=== PATIENT | female | born 1960 | race Caucasian/White ===

== ENCOUNTER 2017-05-01 13:32 | Inpatient (IN) | payer OTHER ==
[~2017-05-01] VITALS: Ht 152.4 cm; Wt 55.3 kg
[2017-05-01] MEDS ORDERED: ALBUTEROL/IPRATROPIUM 2.5MG/0.5MG, 3 ML NPPB SCH (14:30)
[2017-05-01 14:42] LABS: BASOPHILS # (AUTO) 0.02 x10^3/uL (0-0.1); BASOPHILS % (AUTO) 0 % (0-1); EOSINOPHILS % (AUTO) 0 % (1-7); LYMPHOCYTES # (AUTO) 0.88 x10^3/uL (1-3.4); LYMPHOCYTES % (AUTO) 6 % (22-44); MD NO; MEAN CORPUSCULAR HEMOGLOBIN 31.8 pg (27.0-34.8); MEAN CORPUSCULAR HGB CONC 33.6 g/dL (32.4-35.8); MEAN CORPUSCULAR VOLUME 94.5 fL (80-100); MEAN PLATELET VOLUME 9.1 fL (7.4-10.4); MONOCYTES # (AUTO) 1.05 x10^3/uL (0.2-0.8); MONOCYTES % (AUTO) 7 % (2-9); NEUTROPHILS # (AUTO) 12.34 x10^3/uL (1.8-6.8); NEUTROPHILS % (AUTO) 86 % (42-75); PLATELET COUNT 172 x10^3/uL (130-400); RED BLOOD COUNT 5.12 x10^6/uL (3.82-5.3); RED CELL DISTRIBUTION WIDTH 14.5 % (9.6-15.2)
[2017-05-01 14:54] LABS: ANION GAP 13 mmol/L (5-15); CALCIUM 8.8 mg/dL (8.5-10.1); CHLORIDE 102 mmol/L (98-107)
[2017-05-01] MEDS ORDERED: ALBUTEROL/IPRATROPIUM 2.5MG/0.5MG, 3 ML ONE ×2 (15:16→21:03)
[2017-05-01 16:28] LABS: TROPONIN I < 0.015 ng/mL (0.000-0.045)
[2017-05-01] MEDS ORDERED: NICOTINE 14MG/24 HR PATCH.TD24 TD ONE (17:30)
[2017-05-01] MEDS ORDERED: ONDANSETRON 2MG/ML, 2ML IVPush PRN (17:30)
[2017-05-01] MEDS ORDERED: ONDANSETRON ODT 4 MG PO PRN (17:30)
[2017-05-01] MEDS ORDERED: ACETAMINOPHEN 325 MG TABLET PO PRN (17:30)
[2017-05-01] MEDS ORDERED: methylPREDNISolone SOD SUCC 125 MG/2 ML ONE (17:37)
[2017-05-01] MEDS ORDERED: ACETAMINOPHEN 325 MG TABLET ONE (17:37)
[2017-05-01] MEDS ORDERED: CEFTRIAXONE PMX 1GM/50ML 50 ML ONE (17:37)
[2017-05-01] MEDS ORDERED: ENOXAPARIN 40 MG/0.4 ML ONE (17:38)
[2017-05-01] MEDS: CEFTRIAXONE PMX 1GM/50ML 50 ML IV SCH (17:40)
[2017-05-01] MEDS: ENOXAPARIN 40 MG/0.4 ML SQ SCH (17:40)
[2017-05-01] MEDS: methylPREDNISolone SOD SUCC 125 MG/2 ML IVPush SCH (17:41)
[2017-05-01] MEDS ORDERED: morphine SULFATE 10 MG/ML, 1ML ONE (18:08)
[2017-05-01 18:45] VITALS: BP 108/74
[2017-05-01] MEDS: SODIUM CHLORIDE 0.9% 1,000 ML IV SCH (19:39)
[2017-05-01 19:51] VITALS: BP 108/74
[2017-05-01 20:56] LABS: RAPID INFLUENZA B Negative (Negative)
[2017-05-01 20:58] LABS: RAPID INFLUENZA A POSITIVE (Negative)
[2017-05-02 02:27] VITALS: BP 108/62
[2017-05-02] MEDS: methylPREDNISolone SOD SUCC 125 MG/2 ML IVPush SCH ×2 (03:11→08:33)
[2017-05-02 04:51] LABS: ALBUMIN 3.5 g/dL (3.4-5.0); ANION GAP 9 mmol/L (5-15); CALCIUM 8.3 mg/dL (8.5-10.1); CHLORIDE 104 mmol/L (98-107)
[2017-05-02 04:54] LABS: ALANINE AMINOTRANSFERASE 25 U/L (12-78); ALKALINE PHOSPHATASE 61 U/L (45-117); BILIRUBIN,TOTAL 0.3 mg/dL (0.2-1.0); CREATININE 0.49 mg/dL (0.55-1.02); TOTAL PROTEIN 7.1 g/dL (6.4-8.2)
[2017-05-02 04:57] LABS: BASOPHILS % (AUTO) 0 % (0-1); EOSINOPHILS % (AUTO) 0 % (1-7); LYMPHOCYTES # (AUTO) 0.73 x10^3/uL (1-3.4); LYMPHOCYTES % (AUTO) 8 % (22-44); MD NO; MEAN CORPUSCULAR HEMOGLOBIN 31.7 pg (27.0-34.8); MEAN CORPUSCULAR HGB CONC 33.5 g/dL (32.4-35.8); MEAN CORPUSCULAR VOLUME 94.8 fL (80-100); MEAN PLATELET VOLUME 9.4 fL (7.4-10.4); MONOCYTES # (AUTO) 0.35 x10^3/uL (0.2-0.8); MONOCYTES % (AUTO) 4 % (2-9); NEUTROPHILS # (AUTO) 7.59 x10^3/uL (1.8-6.8); NEUTROPHILS % (AUTO) 87 % (42-75); PLATELET COUNT 161 x10^3/uL (130-400); RED BLOOD COUNT 4.62 x10^6/uL (3.82-5.3); RED CELL DISTRIBUTION WIDTH 14.3 % (9.6-15.2)
[2017-05-02] MEDS: ALBUTEROL/IPRATROPIUM 2.5MG/0.5MG, 3 ML NPPB SCH ×2 (06:44→11:00)
[2017-05-02 07:59] VITALS: BP 120/76
[2017-05-02] MEDS: OSELTAMIVIR 75 MG CAPSULE PO SCH ×2 (08:30→19:51)
[2017-05-02] MEDS: SODIUM CHLORIDE 0.9% 1,000 ML IV SCH (10:20)
[2017-05-02] MEDS ORDERED: ALBUTEROL/IPRATROPIUM 2.5MG/0.5MG, 3 ML NPPB PRN ×2 (11:00→23:00)
[2017-05-02 13:49] VITALS: BP 113/71
[2017-05-02] MEDS: CEFTRIAXONE PMX 1GM/50ML 50 ML IV SCH (17:29)
[2017-05-02] MEDS: ENOXAPARIN 40 MG/0.4 ML SQ SCH (17:29)
[2017-05-02 19:37] VITALS: BP 111/73
[2017-05-02] MEDS ORDERED: ALBUTEROL/IPRATROPIUM 2.5MG/0.5MG, 3 ML ONE (22:41)
[2017-05-03] MEDS: SODIUM CHLORIDE 0.9% 1,000 ML IV SCH (00:30)
[2017-05-03 01:20] VITALS: BP 105/72
[2017-05-03] MEDS: OSELTAMIVIR 75 MG CAPSULE PO SCH (07:35)
[2017-05-03 08:05] VITALS: BP 122/82
[2017-05-03] MEDS ORDERED: ALBUTEROL/IPRATROPIUM 2.5MG/0.5MG, 3 ML NPPB PRN (11:00)
[2017-05-03] MEDS ORDERED: OSEL75CA PO (12:20)
[2017-05-03] MEDS ORDERED: CEFD300C37 PO (12:20)
[2017-05-03] MEDS ORDERED: METH4TAB2 PO (12:20)
[2017-05-03] MEDS ORDERED: ALBU6.7H INH (12:20)
== END 2017-05-03 13:39 | disposition home or self-care (01) | DRG 193 ==
LOC: ED 17:12 → EDIP 17:13 → ED 17:22 → 3NE 18:24
PROVIDERS: ADMIT Internal Medicine; ATTEND Internal Medicine
DX: J10.1 Influenza due to other identified influenza virus with other respiratory manifestations (principal); J96.01 Acute respiratory failure with hypoxia; E87.1 Hypo-osmolality and hyponatremia; J44.1 Chronic obstructive pulmonary disease with (acute) exacerbation; F12.90 Cannabis use, unspecified, uncomplicated; F17.210 Nicotine dependence, cigarettes, uncomplicated; Z90.49 Acquired absence of other specified parts of digestive tract; Z88.0 Allergy status to penicillin
CPT/HCPCS: 36415; 71045; 80048; 80053; 82040; 84484; 85025; 87400; 93005; 94640; 96365; 96372; 96375; J0696; J1650; J7620; J2930; J7030; J7512